=== PATIENT | female | born 1985 | race Two or more races ===

== ENCOUNTER 2021-05-22 09:44 | Emergency (ER) | payer MEDICAID, OTHER ==
[~2021-05-22] VITALS: Ht 152.4 cm; Wt 65.8 kg
[2021-05-22 09:47] VITALS: BP 134/73
== END 2021-05-22 14:14 | disposition home or self-care (01) ==
LOC: ER 09:44
DX: F41.9 Anxiety disorder, unspecified (principal); F19.90 Other psychoactive substance use, unspecified, uncomplicated; Z88.8 Allergy status to other drugs, medicaments and biological substances